=== PATIENT | female | born 1985 | race African-American/Black ===

== ENCOUNTER 2017-07-08 16:08 | Emergency (ER) | payer OTHER ==
--- NOTE | 2017-07-08 16:15 | PDOC ---
Rapid Medical Evaluation Time Seen by Provider: 07/08/17 16:12 Medical Evaluation: Allergies Allergy/AdvReac Type Severity Reaction Status Date / Time No Known Allergies Allergy Verified 01/26/16 12:44 07/08/17 16:12 Pt arrives with complaints of: lightheadedness intermittent x 1 month, syncope today , fell on floor, denies head injury witnessed by , gastric sleeve 3 months ago On exam : vss, I have ordered : cbc, comp, mag, ua, upreg, ekg, cardiac profile Pt will go to : main ed
[2017-07-08 16:16] VITALS: BP 139/62; PULSE 83; TEMP 97.6; BMI 26.2
[2017-07-08] MEDS ORDERED: SODIUM CHLORIDE 1,000 ML IV STA (16:16)
[2017-07-08 16:54] LABS: BASOPHIL 0.3 % (0-2.0); EOSINOPHIL 1.1 % (0-4.5); MCH 24.8 pg (25.7-33.7); MCHC 32.7 g/dl (32.0-36.0); MEAN CELL VOLUME 75.9 fl (80-96); MEAN PLT VOLUME 9.4 fl (7.5-11.1); NEUTROPHILS 61.5 % (42.8-82.8); PLATELET COUNT 223 K/MM3 (134-434); RDW 18.6 % (11.6-15.6); WHITE BLOOD COUNT 6.8 K/mm3 (4.0-10.0)
[2017-07-08 16:59] LABS: URINE APPEARANCE SLCLOUDY; URINE BILIRUBIN NEGATIVE (NEGATIVE); URINE BLOOD NEGATIVE (NEGATIVE); URINE COLOR DKYELLOW; URINE GLUCOSE (UA) NEGATIVE (NEGATIVE); URINE KETONE TRACE (NEGATIVE); URINE NITRITE NEGATIVE (NEGATIVE); URINE PROTEIN NEGATIVE (NEGATIVE); URINE UROBILINOGEN 4.0 E.U/dl mg/dL (0.2-1.0)
[2017-07-08 17:15] LABS: ALBUMIN 4.2 g/dl (3.4-5.0); ANION GAP 9 (8-16); CALCIUM 9.3 mg/dL (8.5-10.1); CO2 30 mmol/L (21-32); CREATININE 0.8 mg/dL (0.55-1.02); GLUCOSE,RANDOM 101 mg/dL (74-106); MAGNESIUM 1.8 mg/dL (1.8-2.4); SGOT/AST 18 U/L (15-37); SGPT/ALT 36 U/L (12-78)
[2017-07-08 17:19] LABS: ALK PHOS 60 U/L (45-117); BILIRUBIN,TOTAL 0.6 mg/dL (0.2-1.0); CPK 89 IU/L (26-192); TOT PROT 7.9 g/dl (6.4-8.2); TROPONIN I < 0.02 ng/ml (0.00-0.05)
--- NOTE | 2017-07-08 17:20 | PDOC ---
History of Present Illness - General Chief Complaint: Lightheaded Stated Complaint: SYNCOPE/NEAR SYNCOPE Time Seen by Provider: 07/08/17 16:12 - History of Present Illness Initial Comments: 07/08/17 18:43 32yo woman with PMH of bipolar/depression and gastric sleeve surgery 3mo ago ( Mar 2017) who has had increasing positional lightheadedness. These symptoms began following the surgery, but has been occurring with increasing frequency. She feels lightheaded and endorses the room spinning when she is going from a sitting or lying position to standing. She had one episode while exercising on the treadmill. Denies having these symptoms while at rest. She presented this AM following an episode in which she felt lightheaded, but lost consciousness for a minute partially witnessed by her . Pt was confused for a few minutes following the episode. Denies hitting her head, tonic/clonic movements, tongue biting, or urinary/fecal incontinence. She denies any recent changes in her medications. 07/08/17 18:52 Past History - Past Medical History Allergies/Adverse Reactions: Allergies Allergy/AdvReac Type Severity Reaction Status Date / Time No Known Allergies Allergy Verified 07/08/17 16:12 Home Medications: Ambulatory Orders Losartan Potassium [Cozaar -] 50 mg PO DAILY #30 tablet 03/21/14 Lamotrigine [Lamictal Xr] 200 mg PO DAILY 01/26/16 Sertraline HCl [Zoloft -] 50 mg PO DAILY 01/26/16 Anemia: No Asthma: No Cancer: No Cardiac Disorders: No CVA: No COPD: No Dementia: No Diabetes: No GI Disorders: No Disorders: No HTN: Yes Hypercholesterolemia: No Liver Disease: No Psychiatric Problems: Yes (bipolar , anxeity) Seizures: No Thyroid Disease: No - Surgical History Abdominal Surgery: Yes (gastric sleeve ,hernia mesh) - Immunization History Immunization Up to Date: Yes (flu vaccine) - Suicide/Smoking/Psychosocial Hx Smoking Status: No Smoking History: Never smoked Have you smoked in the past 12 months: No Number of Cigarettes Smoked Daily: 0 Information on smoking cessation initiated: No Hx Alcohol Use: No Drug/Substance Use Hx: No Substance Use Type: None Hx Substance Use Treatment: No Review of Systems - Review of Systems Neurological: Yes: See HPI All Other Systems: Reviewed and Negative *Physical Exam - Vital Signs Last Vital Signs Temp Pulse Resp BP Pulse Ox 97.6 F 83 18 139/62 100 07/08/17 16:13 07/08/17 16:13 07/08/17 16:13 07/08/17 16:13 07/08/17 16:13 - Physical Exam General Appearance: Yes: Nourished, Appropriately Dressed Respiratory/Chest: positive: Lungs Clear, Normal Breath Sounds Cardiovascular: positive: Regular Rhythm, Regular Rate Vascular Pulses: Dorsalis-Pedis (R): 2+, Doralis-Pedis (L): 2+ Gastrointestinal/Abdominal: positive: Normal Bowel Sounds, Soft. negative: Tenderness Neurologic: positive: Fully Oriented, Alert, Other (CNII-XII grossly intact, not formally tested) Heart Score/ECG Review - ECG Intrepretation Rhythm: Regular Rhythm - ECG Impressions Normal ECG: Yes Non-specific ST Elevation: No Ischemic Changes: No Comment:: 07/08/17 18:55 EKG: NSR, rate 67, normal axis, normal intervals (QTc 414), no ischemic changes , no e/p WPW, Brugada ED Treatment Course - LABORATORY CBC & Chemistry Diagram: 07/08/17 16:30 07/08/17 16:30 - ADDITIONAL ORDERS Additional order review: Laboratory Results 07/08/17 07/08/17 16:20 16:20 Urine Color Dkyellow Urine Appearance Slcloudy Urine pH 5.0 Ur Specific [place] 1.018 Urine Protein Negative Urine Glucose (UA) Negative Urine Ketones Trace H Urine Blood Negative Urine Nitrite Negative Urine Bilirubin Negative Urine Urobilinogen 4.0 e.u/dl H Urine HCG, Qual Negative 07/08/17 16:30 RBC 4.92 MCV 75.9 L MCHC 32.7 RDW 18.6 H MPV 9.4 Neutrophils % 61.5 Lymphocytes % 30.5 Monocytes % 6.6 Eosinophils % 1.1 Basophils % 0.3 - Medications Given in the ED: ED Medications Discontinued Medications Generic Name Dose Route Start Last Admin Trade Name Freq PRN Reason Stop Dose Admin Sodium Chloride 1,000 mls @ 1,000 mls/hr 07/08/17 16:16 07/08/17 16:46 Normal Saline - IV 07/08/17 17:15 1,000 mls/hr ASDIR STA Administration Medical Decision Making - Medical Decision Making 07/08/17 18:56 CBC, BMP 07/08/17 16:30 07/08/17 16:30 Troponin, BNP 07/08/17 16:30 Troponin I < 0.02 Urine Test Results Urine Color Dkyellow 07/08/17 16:20 Urine Appearance Slcloudy 07/08/17 16:20 Urine pH 5.0 (5.0-8.0) 07/08/17 16:20 Ur Specific [place] 1.018 (1.001-1.035) 07/08/17 16:20 Urine Protein Negative (NEGATIVE) 07/08/17 16:20 Urine Glucose (UA) Negative (NEGATIVE) 07/08/17 16:20 Urine Ketones Trace (NEGATIVE) H 07/08/17 16:20 Urine Blood Negative (NEGATIVE) 07/08/17 16:20 Urine Nitrite Negative (NEGATIVE) 07/08/17 16:20 Urine Bilirubin Negative (NEGATIVE) 07/08/17 16:20 Vital Signs Temperature 97.6 F 07/08/17 16:13 Pulse Rate 83 07/08/17 16:13 Respiratory Rate 18 07/08/17 16:13 Blood Pressure 139/62 07/08/17 16:13 O2 Sat by Pulse Oximetry (%) 100 07/08/17 16:13 Patient's VSS EKG and labs unconcerning for arrhymia, WPW, Brugada; Troponin is negative Likely patient has vasovagal syncope. She is feeling better after IVF. Her vital signs are stable. EKG unconcerning for arrhythmias, WPW, Brugada, and Troponin is negative. She is stable to be discharged home, with follow-up with her PCP and Neurologist. 07/08/17 19:02 07/08/17 19:10 *DC/Admit/Observation/Transfer Diagnosis at time of Disposition: Postural dizziness with presyncope - Referrals Referrals: Alden Rankin MD [Primary Care Provider] - - Patient Instructions Additional Instructions: Please follow-up with your primary care physician within 1-2 weeks to check your basic metabolic panel. Your potassium was found to be low, and recommend you eating bananas to increase your potassium. You should also continue drink lots of fluids (water, seltzer, etc) to maintain hydration. Please follow-up with a Neurologist (Dr. Amaya, ) within 1-2 weeks to discuss your dizziness. Please return to the emergency department if you have new, worsening or concerning symptoms. - Post Discharge Activity
--- NOTE | 2017-07-08 18:41 | PDOC ---
Attending Attestation - HPI HPI: 07/08/17 18:42 The patient is a 32 year old female with a significant PMH of remote asthma, bipolar depression, anxiety, and s/p gastric sleeve who presents to the ER with lightheadedness beginning this morning. The patient describes that the lightheadedness is triggered by change in position and is improved by rest. The patient reports fainting earlier today, which was partially witnessed by her . She denies hitting their head, tongue biting, or urinary incontinence but reports being confused for a few minutes. - Physicial Exam PE: 07/08/17 18:44 Vitals: Triage Vital signs reviewed General Appearance: no acute distress, well nourished well developed, Head: Atraumatic, normocephalic Neck: Supple;No Nuchal rigidity Chest Wall: Nontender Cardiac: Regular rate and rhythm, no murmurs, no rubs, no gallops, Lungs: Clear to auscultation bilateral, good air movement bilaterally, Abdomen: Soft, nondistended, normal bowel sounds, nontender to palpation Extremities: Full range of motion to all extremities, no cyanosis, clubbing, or edema Skin: Warm and dry, no rashes or lesions, no petechiae Neuro: AOX3; Cranial Nerves 2-12 grossly intact, Strength intact to all extremities, Sensation intact to all extremities, gait normal Psych: normal mood, normal affect - Medical Decision Making 07/08/17 18:45 Plan: Care: Orthostatics Labs: UA Cardiology: EKG Medication: Sodium Chloride Radiology: Chest XR <Allen Esquivel - Last Filed: 07/08/17 18:42> - Resident Resident Name: Kimmy Abdul - ED Attending Attestation I have performed the following: I have examined & evaluated the patient, The case was reviewed & discussed with the resident, I agree w/resident's findings & plan, Exceptions are as noted - Medical Decision Making 32 years old history and examination consistent with positional lightheadedness/ syncope Patient status post gastric sleeve she has no abdominal pain on examination her vital signs stable her labs are within normal limits. Status post 1 L of normal saline patient feels much better. I suspect her symptomatology return related to dehydration. She will follow-up with her doctor this week she was instructed to eat more bananas as her potassium was 3.3 her EKG was normal there was no evidence of A. fib other arrhythmias heart block WPW Brugada or prolonged QT Findings, the need for follow-up and strict return instructions discussed with patient. 07/08/17 19:15 <Torrey Smith - Last Filed: 07/08/17 19:15> Heart Score/ECG Review #1 07/08/17 18:45 EKG performed at [17:05] demonstrates rate of normal, rhythm of normal, axis equal to [normal]. no T wave inversions, no ST elevations. <Allen Esquivel - Last Filed: 07/08/17 18:42>
[2017-07-08 20:18] LABS: URINE LEUK ESTERASE Negative (NEGATIVE)
--- NOTE | 2017-07-09 12:13 | EKG ---
Test Reason : Blood Pressure : / mmHG Vent. Rate : 067 BPM Atrial Rate : 067 BPM P-R Int : 152 ms QRS Dur : 080 ms QT Int : 392 ms P-R-T Axes : 002 031 015 degrees QTc Int : 414 ms NORMAL SINUS RHYTHM NORMAL ECG WHEN COMPARED WITH ECG OF 28-JUL-2014 23:15, NO SIGNIFICANT CHANGE WAS FOUND Confirmed by IRON ZAVALETA MD ([id number]) on 07/09/2017 12:13:18 PM Referred By: Confirmed By:IRON ZAVALETA MD
== END 2017-07-08 19:17 | disposition home or self-care (01) ==
LOC: JER 16:08
DX: H81.10 Benign paroxysmal vertigo, unspecified ear (principal); I10 Essential (primary) hypertension; E87.6 Hypokalemia; Z98.84 Bariatric surgery status
CPT/HCPCS: 36415; 71010-TC; 80053; 81003; 82550; 83735; 84484; 84703; 85025; 93005; 93010; 99283-25

== ENCOUNTER 2019-06-05 10:25 | Emergency (ER) | payer OTHER ==
[2019-06-05 10:34] VITALS: BP 131/72; PULSE 88; TEMP 98.2; BMI 30.7
[2019-06-05] MEDS ORDERED: ERYTHROMYCIN 0.5% OPHTHALMIC OINTMENT 3.5 GM TUBE ONE ×2 (10:47→11:07)
--- NOTE | 2019-06-05 10:49 | PDOC ---
History of Present Illness - General Chief Complaint: Eye Problem Stated Complaint: SORE EYE Time Seen by Provider: 06/05/19 10:42 History Source: Patient Exam Limitations: No Limitations - History of Present Illness Initial Comments: 06/05/19 10:48 Patient here with concerns of left eye swelling in her lower lip. States googled and thinks may have a stye but has never had one before. Is in 6 months and was concerned there may be some issue with the . Denies visual changes, is mildly painful and mildly pruritic. Has no drainage Is this a multiple visit Asthma Patient?: No Timing/Duration: unsure, 24 hours Severity: mild Past History - Travel Traveled outside of the country in the last 30 days: No Close contact w/someone who was outside of country & ill: No - Past Medical History Allergies/Adverse Reactions: Allergies Allergy/AdvReac Type Severity Reaction Status Date / Time No Known Allergies Allergy Verified 06/05/19 10:30 Home Medications: Ambulatory Orders Losartan Potassium [Cozaar -] 50 mg PO DAILY #30 tablet 03/21/14 Lamotrigine [Lamictal Xr] 200 mg PO DAILY 01/26/16 Sertraline HCl [Zoloft -] 50 mg PO DAILY 01/26/16 Anemia: No Asthma: No Cancer: No Cardiac Disorders: No CVA: No COPD: No Dementia: No Diabetes: No GI Disorders: No Disorders: No HTN: Yes Hypercholesterolemia: No Liver Disease: No Psychiatric Problems: Yes (bipolar , anxeity) Seizures: No Thyroid Disease: No - Surgical History Abdominal Surgery: Yes (gastric sleeve ,hernia mesh) - Immunization History Immunization Up to Date: Yes (flu vaccine) - Psycho Social/Smoking Cessation Hx Smoking Status: No Smoking History: Never smoked Have you smoked in the past 12 months: No Number of Cigarettes Smoked Daily: 0 Information on smoking cessation initiated: No Hx Alcohol Use: No Drug/Substance Use Hx: No Substance Use Type: None Hx Substance Use Treatment: No Review of Systems - Review of Systems Able to Perform ROS?: Yes Is the patient limited [place] proficient: Yes Constitutional: Yes: See HPI. No: Symptoms Reported, Chills, Fever HEENTM: Yes: Symptoms Reported, See HPI, Eye Pain (Eyelid). No: Blurred Vision , Tearing, Double Vision Respiratory: Yes: See HPI. No: Symptoms reported Integumentary: Yes: Symptoms Reported, See HPI, Lesions (To left lower lid) All Other Systems: Reviewed and Negative *Physical Exam - Vital Signs Last Vital Signs Temp Pulse Resp BP Pulse Ox 98.2 F 88 17 131/72 100 06/05/19 10:30 06/05/19 10:30 06/05/19 10:30 06/05/19 10:30 06/05/19 10:30 - Physical Exam General Appearance: Yes: Nourished, Appropriately Dressed. No: Apparent Distress HEENT: positive: FRANK, Normal ENT Inspection, TMs Normal, Pharynx Normal, Other (Left lower lid with pointing lesion to the inner aspect of lower border. No purulent drainage, is mildly tender but no periorbital cellulitis. Vision is within normal limits) Neck: positive: Supple. negative: Tender, Lymphadenopathy (R), Lymphadenopathy (L) Respiratory/Chest: positive: Lungs Clear, Normal Breath Sounds Neurologic: positive: line analyst II-XII NML intact, Fully Oriented, Alert, Normal Mood/ Affect, Normal Response, Motor Strength /5 Medical Decision Making - Medical Decision Making 06/05/19 10:51 Lower external stye, will treat conservatively, provide erythromycin ointment for lubricating purposes only Discharge - Discharge Information Problems reviewed: No Clinical Impression/Diagnosis: Stye external Qualifiers: Laterality: left Eyelid: lower Qualified Code(s): H00.015 - Hordeolum externum left lower eyelid Condition: Stable Disposition: HOME - Admission No - Follow up/Referral Referrals: Alden Rankin MD [Primary Care Provider] - - Patient Discharge Instructions Patient Printed Discharge Instructions: DI for Hordeolum Additional Instructions: Rest, avoid rubbing eyes Hot soaks to I often as possible to help draw the sterile infection to a head and allow to drain This is not generally a dangerous infection and will usually go away hot soaks Erythromycin ointment to affected eye 3 times a day until healed UseD primarily for lubricating purposE Avoid contact with others until redness and discharge is gone from eyes. Followup with ophthalmology or private physician as needed - Post Discharge Activity
[2019-06-05] MEDS ORDERED: ERYTHROMYCIN 0.5% OPHTHALMIC OINTMENT 3.5 GM TUBE OS ONE (10:53)
== END 2019-06-05 10:50 | disposition home or self-care (01) ==
LOC: JER 10:25
DX: H00.015 Hordeolum externum left lower eyelid (principal); I10 Essential (primary) hypertension; F31.9 Bipolar disorder, unspecified; F41.9 Anxiety disorder, unspecified; Z98.84 Bariatric surgery status
CPT/HCPCS: 99281-25